=== PATIENT | male | born 1960 ===

== ENCOUNTER 2024-10-29 13:20 | Outpatient (RCR) | payer MEDICARE, SELFPAY | END 2024-10-29 23:59 | disposition home or self-care (01) | LOC: RPT 13:20 | PROVIDERS: ATTENDING PHYSICIAN Psychiatry & Neurology Neurology; FAMILY PHYSICIAN Family Medicine | DX: I63.232 Cerebral infarction due to unspecified occlusion or stenosis of left carotid arteries (principal); R26.89 Other abnormalities of gait and mobility (principal); Z73.6 Limitation of activities due to disability | CPT/HCPCS: 97110; 97112; 97116; 97162; 97530 ==

== ENCOUNTER 2024-11-21 11:11 | Outpatient (RCR) | payer MEDICARE, SELFPAY | END 2024-11-21 23:59 | disposition home or self-care (01) | LOC: RPT 11:11 | PROVIDERS: ATTENDING PHYSICIAN Psychiatry & Neurology Neurology; FAMILY PHYSICIAN Family Medicine | DX: I63.232 Cerebral infarction due to unspecified occlusion or stenosis of left carotid arteries (principal); Z73.6 Limitation of activities due to disability | CPT/HCPCS: 97110; 97112; 97116; 97530 ==

== ENCOUNTER 2024-12-27 14:54 | Outpatient (RCR) | payer MEDICARE, SELFPAY | END 2024-12-27 23:59 | disposition home or self-care (01) | LOC: RPT 14:54 | PROVIDERS: ATTENDING PHYSICIAN Psychiatry & Neurology Neurology; FAMILY PHYSICIAN Family Medicine | DX: I69.398 Other sequelae of cerebral infarction (principal); I63.232 Cerebral infarction due to unspecified occlusion or stenosis of left carotid arteries (principal); Z73.6 Limitation of activities due to disability | CPT/HCPCS: 97110; 97112; 97116; 97530 ==

== ENCOUNTER 2025-01-24 10:10 | Outpatient (RCR) | payer MEDICARE, SELFPAY | END 2025-01-24 23:59 | disposition home or self-care (01) | LOC: RPT 10:10 | PROVIDERS: ATTENDING PHYSICIAN Psychiatry & Neurology Neurology; FAMILY PHYSICIAN Family Medicine | DX: I69.2 Sequelae of other nontraumatic intracranial hemorrhage (principal); I69.354 Hemiplegia and hemiparesis following cerebral infarction affecting left non-dominant side (principal); I63.232 Cerebral infarction due to unspecified occlusion or stenosis of left carotid arteries (principal); Z73.6 Limitation of activities due to disability; R26.89 Other abnormalities of gait and mobility; R29.6 Repeated falls | CPT/HCPCS: 97110; 97112; 97116; 97530 ==

== ENCOUNTER 2025-02-14 07:20 | Outpatient (RCR) | payer MEDICARE, SELFPAY | END 2025-02-14 13:11 | disposition home or self-care (01) | LOC: RPT 07:20 | PROVIDERS: ATTENDING PHYSICIAN Psychiatry & Neurology Neurology; FAMILY PHYSICIAN Family Medicine | DX: I63.232 Cerebral infarction due to unspecified occlusion or stenosis of left carotid arteries (principal); I69.2 Sequelae of other nontraumatic intracranial hemorrhage (principal); I69.398 Other sequelae of cerebral infarction (principal); R29.6 Repeated falls; I69.354 Hemiplegia and hemiparesis following cerebral infarction affecting left non-dominant side; R26.89 Other abnormalities of gait and mobility; Z73.6 Limitation of activities due to disability | CPT/HCPCS: 97110; 97112; 97116; 97530 ==